=== PATIENT | female | born 1975 | race Caucasian/White ===

== ENCOUNTER 2019-08-12 13:51 | Emergency (ER) | payer OTHER ==
[~2019-08-12] VITALS: Ht 160 cm; Wt 95.3 kg
[~2019-08-12 13:51] MED LIST: AMBEREN PO; FLOMAX PO; FOLIC ACID PO; LAMICTAL PO; MOBIC7.5 MG PO; NITROFURANTOIN100 MG PO; NORCO 5-325 TA1 EACH PO; PERCOCET PO; PROZAC PO; PYRIDIUM200 MG PO; VITAMIN B-2100 MG PO; ZONISAMIDE 100100 M1 PO; ZPAK PO
[2019-08-12] MEDS ORDERED: ETHOSUXIMIDE250 MG PO (14:01)
[2019-08-12] MEDS ORDERED: TOPAMAX100 MG PO (14:01)
[2019-08-12] MEDS ORDERED: VENLAFAXINE HCL25 MG PO (14:02)
[2019-08-12] MEDS ORDERED: PROTONIX 20 MG20 MG PO (14:02)
[2019-08-12] MEDS ORDERED: PROAIR HFA8.5 GM INH (14:02)
[2019-08-12] MEDS ORDERED: LORAZEPAM 0.50.5 MG PO (14:02)
[2019-08-12] MEDS ORDERED: CARAFATE 1 GM TA1 G1 PO (14:02)
[2019-08-12 15:27] LABS: ABSOLUTE BASOPHILS 0.1 thou/uL (0.0-0.2); ABSOLUTE EOSINOPHILS 0.2 thou/uL (0.0-0.7); ABSOLUTE MONOCYTES 0.7 thou/uL (0.0-1.2); ABSOLUTE NEUTROPHILS 6.2 thou/uL (1.6-8.1); BASOPHILS 0.9 %; EOSINOPHILS 2.6 %; HEMATOCRIT 43.4 % (37.0-47.0); HEMOGLOBIN 14.8 gm/dL (12.0-15.0); LYMPHOCYTES 21.9 %; MCH 30.2 pg (26.0-34.0); MCV 88.8 fL (80.0-100.0); MONOCYTES 7.8 %; MPV 6.4 fl. (7.2-11.1); NUCLEATED RBCS 0 /100WBC; PLATELET COUNT* 252 thou/uL (150-400); POLYS 66.8 %; RBC 4.89 mil/uL (4.20-5.00); RDW-CV 13.5 % (10.5-14.5); WBC 9.3 thou/uL (4.0-11.0)
[2019-08-12 15:28] LABS: URINE BILIRUBIN NEGATIVE (Negative); URINE BLOOD 2+ (Negative); URINE CLARITY CLEAR; URINE COLOR YELLOW; URINE GLUCOSE-RANDOM NEGATIVE (Negative); URINE KETONES NEGATIVE (Negative); URINE LEUKOCYTES-REFLEX NEGATIVE (Negative); URINE NITRITE-REFLEX NEGATIVE (Negative); URINE PROTEIN NEGATIVE (Negative); URINE SPECIFIC GRAVITY 1.025 (1.005-1.030); URINE UROBILINOGEN 0.2 E.U./dl (0.2-1.0)
[2019-08-12 15:34] LABS: SQUAMOUS 0-3 Few /LPF (0-3)
[2019-08-12 15:35] LABS: BACTERIA-REFLEX 1-9 Few /HPF (None Seen); CASTS None Seen /LPF (None Seen); CRYSTALS None Seen /LPF (None Seen); URINE RBC 0-2 Rare /HPF (0-2); URINE WBC-REFLEX 0-5 Rare /HPF (0-5)
[2019-08-12 15:39] LABS: CALCIUM 8.5 mg/dL (8.5-10.1); CREATININE 0.8 mg/dL (0.6-1.3); POTASSIUM 3.6 mmol/L (3.5-5.1)
--- NOTE | 2019-08-12 15:39 | EKG ---
[place] [address] ELECTROCARDIOGRAM REPORT Name: BIRDIE IHNKLE Room: [facility]#: [id number] Admission: 08/12/19 Attend Phys: Discharge: Date of : 73 Date of Service: 08/12/196 Report #: [id number] THIS REPORT FOR: //name// [facility] ED Test Date: 2019-08-12 Test Time: 15:16:36 Pat Name: BIRDIE HINKLE Department: Room: Gender: F Animal [employer] Manager: [facility] : 1975 Requested By: Elsie Wharton Order Number: [id number] MD: Thomas Rios Measurements Intervals [place] Rate: 79 P: 35 ID: [id number] QRS: 26 QRSD: 99 T: 27 QT: 393 QTc: 451 Interpretive Statements Sinus rhythm No previous ECG available for comparison Electronically Signed On 08-12-2019 15:39:07 CDT by Thomas Rios [email or web address] <ELECTRONICALLY SIGNED> By: Thomas Rios MD, [facility] 08/12/19 1539 1516 1516 Thomas Rios MD, FACC /EPI
[2019-08-12 15:43] LABS: ALBUMIN 4.1 g/dL (3.4-5.0); TOTAL BILIRUBIN 0.3 mg/dL (<0.1-1.0); TOTAL PROTEIN 8.2 g/dL (6.4-8.2)
[2019-08-12] MEDS ORDERED: NORCO 5-325 TA1 EAC1 PO (17:10)
[2019-08-12] MEDS ORDERED: ONDANSETRON HCL4 M2 PO (17:10)
[2019-08-12 17:26] VITALS: BP 125/77
== END 2019-08-12 17:27 | disposition home or self-care (01) ==
LOC: M.ERS 13:51
PROVIDERS: Nurse Practitioner Family
DX: R10.13 Epigastric pain (principal); J45.909 Unspecified asthma, uncomplicated; G43.909 Migraine, unspecified, not intractable, without status migrainosus; Z90.49 Acquired absence of other specified parts of digestive tract; Z88.0 Allergy status to penicillin; Z88.2 Allergy status to sulfonamides